=== PATIENT | male | born 1990 | race Caucasian/White ===

== ENCOUNTER 2023-10-13 16:57 | Emergency (ER) | payer SELFPAY ==
[~2023-10-13] VITALS: Ht 175.3 cm; Wt 68.0 kg
[2023-10-13 17:34] VITALS: BP 122/78; PULSE 107; RESP 18; TEMP 98.2; O2SAT 98
[2023-10-13] MEDS ORDERED: MOTRIN ONE (17:42)
[2023-10-13] MEDS: MOTRIN PO STA (17:50)
[2023-10-13 18:46] VITALS: BP 129/79; PULSE 79; RESP 18; TEMP 98.2; O2SAT 98
== END 2023-10-13 19:00 | disposition home or self-care (01) ==
LOC: ER 16:57
DX: S99.922A Unspecified injury of left foot, initial encounter (principal); W20.8XXA Other cause of strike by thrown, projected or falling object, initial encounter; Y93.89 Activity, other specified; Y92.89 Other specified places as the place of occurrence of the external cause; Y99.0 Civilian activity done for income or pay
CPT/HCPCS: 99283; 73660-LT